=== PATIENT | male | born 1965 | race African-American/Black ===

== ENCOUNTER 2022-09-14 04:13 | Emergency (ER) | payer SELFPAY ==
[~2022-09-14] VITALS: Ht 188 cm; Wt 127.0 kg
[2022-09-14] MEDS ORDERED: KETOROLAC 30MG/ML VIAL IV ONE (04:45)
[2022-09-14] MEDS ORDERED: TRAMADOL 50MG TABLET PO ONE (04:45)
[2022-09-14] MEDS ORDERED: CYCL10TA21 MT (05:15)
[2022-09-16] MEDS ORDERED: QUETIAPINE FUMARATE 50MG TABLET PO SCH (03:15)
[2022-09-16] MEDS ORDERED: GABAPENTIN 300MG CAPSULE PO ONE (03:15)
[2022-09-16] MEDS ORDERED: GABAPENTIN 300MG CAPSULE PO NR (03:45)
[2022-09-16] MEDS ORDERED: QUETIAPINE FUMARATE 50MG TABLET PO NR (03:45)
[2022-09-16] MEDS ORDERED: ACETAMINOPHEN 325MG TABLET PO ONE (13:00)
[2022-09-17] MEDS ORDERED: GABAPENTIN 300MG CAPSULE PO ONE (00:30)
[2022-09-17] MEDS ORDERED: QUETIAPINE FUMARATE 50MG TABLET PO NR (00:40)
[2022-09-17 03:05] LABS: BASOPHILS % 0.2 % (0.0-2.0); EOSINOPHILS % 0.5 % (0.0-5.0); HEMATOCRIT. 36.9 % (42.0-52.0); HEMOGLOBIN. 12.1 g/dL (14.0-18.0); LYMPHOCYTES % 38.8 % (20.0-50.0); MEAN CORPUSCULAR VOLUME 85.2 fL (80.0-94.0); MEAN PLATELET VOLUME 7.7 fl (7.4-10.4); MONOCYTES % 12.7 % (2.0-8.0); NEUTROPHILS % 47.8 % (40.0-76.0); PLATELET 233 x1000/uL (130-400); RED BLOOD CELL COUNT 4.33 mill/uL (4.7-6.1); RED CELL DISTRIBUTION WIDTH 16.4 % (11.6-14.6)
[2022-09-17 03:13] LABS: CHLORIDE 107 mEq/L (98-107)
[2022-09-17 03:21] LABS: ETHANOL BLOOD < 10 mg/dL (-10)
[2022-09-17 07:02] LABS: *AMPHETAMINES SCREEN URINE NEGATIVE (NEGATIVE); *BARBITURATES SCREEN URINE NEGATIVE (NEGATIVE); *BENZODIAZEPINES SCREEN URINE NEGATIVE (NEGATIVE); *COCAINE SCREEN URINE NEGATIVE (NEGATIVE); CANNABINOID URINE SCREEN PRESUMTIVE POSITIVE (NEGATIVE); METHADONE URINE SCREEN NEGATIVE (NEGATIVE); OPIATES URINE SCREEN NEGATIVE (NEGATIVE); PHENCYCLIDINE URINE SCREEN NEGATIVE (NEGATIVE)
[2022-09-17] MEDS ORDERED: QUETIAPINE FUMARATE 200MG TABLET PO SCH (15:00)
[2022-09-17] MEDS: QUETIAPINE FUMARATE 50MG TABLET PO SCH ×2 (16:06→21:05)
[2022-09-18] MEDS: QUETIAPINE FUMARATE 50MG TABLET PO SCH ×2 (09:44→21:30)
[2022-09-18] MEDS ORDERED: LISINOPRIL 40MG TABLET PO ONE (21:00)
[2022-09-18] MEDS ORDERED: KETOROLAC 30MG/ML VIAL IM ONE (21:00)
[2022-09-19] MEDS ORDERED: LISINOPRIL 40MG TABLET PO ONE (13:15)
[2022-09-19] MEDS ORDERED: IBUPROFEN 400MG TABLET PO ONE (13:15)
[2022-09-19] MEDS: QUETIAPINE FUMARATE 50MG TABLET PO SCH ×2 (14:00→23:10)
[2022-09-19] MEDS ORDERED: KETOROLAC 60MG/2ML VIAL IM ONE (21:45)
[2022-09-20 06:09] VITALS: BP 118/70
== END 2022-09-14 10:14 | disposition home or self-care (01) ==
LOC: ER 04:13
DX: M54.50 Low back pain, unspecified (principal); J45.909 Unspecified asthma, uncomplicated; I10 Essential (primary) hypertension; W18.39XA Other fall on same level, initial encounter; Y93.89 Activity, other specified; Y92.89 Other specified places as the place of occurrence of the external cause; Y99.8 Other external cause status; Z20.822 Contact with and (suspected) exposure to COVID-19
CPT/HCPCS: 36415; 71250; 72131; 80053; 80305; 80307; 80320; 80329; 84484; 85025; 87426; 93005; 96374; 99285; C9803; J1885; Z7610; G0480